=== PATIENT | female | born 1965 | race Caucasian/White ===

== ENCOUNTER 2020-09-05 15:08 | Outpatient (REF) | payer OTHER, SELFPAY ==
[2020-09-05 18:11] LABS: HCT 36.6 % (36.0-46.0); MCHC 32.8 % (32.0-36.0); MCV 97.6 fL (80-95); MPV 10.8 fL (8.0-11.0); Platelet Count 231 10^3/uL (130-400); RBC 3.75 10^6/uL (3.93-5.22); RDW 12.1 % (11.7-14.6); RDW-SD 43.9 fL; WBC 4.93 10^3/uL (4.4-10.8)
[2020-09-05 18:25] LABS: ALT 56 U/L (14-59); AST 121 U/L (15-37); Alkaline Phosphatase 65 U/L (46-116); Anion Gap 8.1 mmol/L (3-11); BUN 14 mg/dL (7-18); Bilirubin, Total 0.4 mg/dL (0.2-1.0); CO2 27.9 mmol/L (21.0-32.0); CREATININE 0.68 mg/dL (0.55-1.02); Calcium 8.8 mg/dL (8.5-10.1); Calculated LDL 95 mg/dL (<100); Chloride 102 mmol/L (98-107); Cholesterol 206 mg/dL (<200); Glucose 84 mg/dL (74-106); HDL Cholesterol 97 mg/dL (40-60); Potassium 3.7 mmol/L (3.5-5.1); Sodium 138 mmol/L (136-145); TSH (W/Ref FT4) 0.88 uIU/mL (0.36-3.74); Total Protein 7.5 g/dL (6.4-8.2); Triglyceride 71 mg/dL (<150)
[2020-09-05 19:31] LABS: Hemoglobin A1C 5.2 % (<5.7)
[2020-09-09 10:05] LABS: Hepatitis C Ab w Rflx HCV PCR Negative (Negative)
[2020-09-09 10:46] LABS: HIV-1/2 Ag & Ab Screen Negative (Negative)
== END 2020-09-05 15:28 ==
LOC: NCHCN 15:08
PROVIDERS: PCP Nurse Practitioner Family; Visit Provider Nurse Practitioner Family
DX: Z00.00 Encounter for general adult medical examination without abnormal findings (principal)
CPT/HCPCS: 80053; 80061; 85027; 86803; 87389; 83036; 84443